=== PATIENT | male | born 1995 | race Two or more races ===

== ENCOUNTER 2018-04-18 14:45 | Emergency (ER) | payer OTHER ==
--- NOTE | 2018-04-18 16:08 | ER Document Report ---
HPI - HPI Patient complains to provider of: Genital growth Time Seen by Provider: 04/18/18 15:56 Onset: Other - Unknown Quality of pain: No pain Severity: Mild Pain Level: 0 Context: Patient is a well nourished well-developed 22-year-old male comes emergency room complaining of having a "growth on his shaft". Patient states that he decided to shave last night for whatever reason and noticed that he had a growth on the shaft of his penis. Patient states he went online and started looking it up and is driving him crazy he believes he has some type of a genital wart. Patient just released from the he gets get checked twice a year for any kind of problems he was vaccinated for HPV and he is never tested positive for anything. He also states that he is only had intercourse with his he is not had any involvement with the women overseas etc. He is just scared that he may have something. He denies any pain no itching no other symptoms. Associated Symptoms: None Exacerbated by: Denies Relieved by: Denies Similar symptoms previously: No Recently seen / treated by doctor: No - ROS ROS below otherwise negative: Yes Systems Reviewed and Negative: Yes All other systems reviewed and negative - CONSTITUTIONAL Constitutional: DENIES: Fever, Chills - EENT EENT: DENIES: Sore Throat, Ear Pain, Nasal Drainage-Clear, Nasal Drainage- Purulent, Congestion, Eye problems - NEURO Neurology: DENIES: Headache, Weakness, Vision blurred, Dizzinesss / Vertigo - CARDIOVASCULAR Cardiovascular: DENIES: Chest pain - RESPIRATORY Respiratory: DENIES: Trouble Breathing, Coughing - GASTROINTESTINAL Gastrointestinal: DENIES: Abdominal Pain, Nausea, Patient vomiting, Diarrhea, Constipation, Black / Bloody Stools - DERM Skin Color: Other - Examination of patient's area of complaint is the shaft of the penis. There is a 1 dark spot that is somewhat raised it is no appearance of condyloma acuminata. It is a more firm type skin tag presentation. Has a secondary one on the scrotum as well. Again these do not appear to be a wart type material and do not appear to be essentially transmitted type of a skin lesion. The heart tone flesh-colored and somewhat firm and raised. Again the is not peduncle but it is a flat raised lesion which again appears to be a skin tag. Past Medical History - General Information source: Patient - Social History Smoking Status: Never Smoker Cigarette use (# per day): No Chew tobacco use (# tins/day): No Smoking Education Provided: No Frequency of alcohol use: None Drug Abuse: None Lives with: Family Family History: Reviewed & Not Pertinent Vertical Provider Document - CONSTITUTIONAL Agree With Documented VS: Yes Exam Limitations: No Limitations General Appearance: WD/WN, No Apparent Distress, Other - Slightly anxious - INFECTION CONTROL TRAVEL OUTSIDE OF THE [place] IN LAST 30 DAYS: No - HEENT HEENT: Atraumatic, Normocephalic - NECK Neck: Normal Inspection, Supple - RESPIRATORY Respiratory: Breath Sounds Normal, Chest Non-Tender. negative: Rales, Rhonchi, Wheezing - CARDIOVASCULAR Cardiovascular: Regular Rate - Patient's vital signs were not documented in computer program in triage sheet his temp is 97.4 his pulse rate is 72 respiratory rate is 14 and his saturation is 90% on room air. - GI/ABDOMEN Gastrointestinal: Abdomen Soft, Abdomen Non-Tender - REPRODUCTIVE Male Genitalia: Normal Inspection Notes: Inspection male genitalia shows no real abnormal allergies. The area of question is stated on the shaft of the penis appears to be skin tag. The one in the scrotal sac area as well same color tone same presentation non- pedunculated a little firm no sign or reason to believe it is a presentation of condyloma acuminata. - BACK Back: Normal Inspection - MUSCULOSKELETAL/EXTREMETIES Musculoskeletal/Extremeties: FROM, Non-Tender - NEURO Level of Consciousness: Awake - DERM Integumentary: Warm, Dry Course - Re-evaluation Re-evalutation: 04/18/18 16:09 Has stated to patient that this is got very low risk for being in a associated genital wart. Is it possible that it is a 1 then the answer would be possibly and only a biopsy would tell us what it actually is. That we do not do out of the ER. I informed patient that if it continues on is more worried that he can follow-up with [facility] urology/or a colon and rectal surgeon of his choice. Given that his history is non-limited to only his the chances of a sexually transmitted disease is exceptionally slim although I did mention to him that I do not know his . But patient has been in the he has been checked for multiple diseases in the past and is never had a problem he has been vaccinated for HPV and at this point I believe this is a simple skin tag popped up in an area that is scaring him. Discharge - Discharge Clinical Impression: Skin tag Condition: Stable Disposition: HOME, SELF-CARE Additional Instructions: As we discussed I do not believe this is association of any type of a sexually transmitted wart presentation. I believe it to be more of a skin tag presentation. Is it possible that it is a wart of some description is possible and the only way to ever find out is to have a biopsy done. The only way to get this done is by having someone scrape it or cut it out and we do not do that the emergency room. Your primary doctor may want to do it but most of the time the urology group [facility] urologist are someone that may do it since it is on a penis. Then 2 you may consider a colon and rectal surgeon of your choice. They would be most likely the quickest wants to be able to identify it and if possible even by look. But again given your history and presentation this is to me more of a skin tag and I do not think it has anything to worry about. Also as we get older we develop other types of lesions on her bodies that are strange and weird looking we have and pay attention to what is been there for quite a while. That is why we establish with primary care providers and or yearly colon and rectal surgeon to monitor the skin changes. People with dark skin have a higher frequency of having some type of lesions as compared to those of that are really appear white. Forms: Return to Work Referrals: [facility] [NO LOCAL MD] - Follow up as needed
[2018-04-18 16:35] VITALS: BP 127/84
== END 2018-04-18 16:35 | disposition home or self-care (01) ==
LOC: ER 14:45
DX: L91.8 Other hypertrophic disorders of the skin (principal); N48.89 Other specified disorders of penis
CPT/HCPCS: 99282